=== PATIENT | male | born 2005 | race Caucasian/White ===

== ENCOUNTER 2024-08-03 15:03 | Emergency (ER) | payer MEDICAID ==
[~2024-08-03] VITALS: Ht 195.6 cm; Wt 87.9 kg
[2024-08-03 15:44] LABS: BASOPHILS 0.2 % (0-2); EOSINOPHILS 0.5 % (0-6); HEMATOCRIT 47.5 % (35.0-50.0); HEMOGLOBIN 16.2 g/dL (12.0-18.0); LYMPHOCYTES 17.9 % (24-44); MCH 30.2 (27-36); MCHC 34.1 g/dl (30-36); MCV 88.5 fl (81-99); NEUTROPHILS 72.4 % (39-80); PLATELET COUNT 306 K/uL (140-440); RBC 5.36 M/ul (4.3-5.7); RDW 13.1 (10.5-15.0)
[2024-08-03] MEDS ORDERED: diphenhydrAMINE HCL 50 MG/ML VIAL IM SCH (15:45)
[2024-08-03] MEDS ORDERED: HALOPERIDOL LACTATE 5 MG/ML VIAL IM SCH (15:45)
[2024-08-03] MEDS ORDERED: LORazepam 2 MG/ML VIAL IM ONE (15:45)
[2024-08-03 16:07] LABS: ACETAMINOPHEN 0 ug/mL (10-30); ALBUMIN 3.9 g/dL (3.4-5.0); ALCOHOL, MEDICAL <3 ng/dL (<3); ALKALINE PHOSPHATASE 63 U/L (46-116); ALT (SGPT) 17 U/L (14-59); ANION GAP 11.8 (7-21); AST (SGOT) 13 U/L (15-37); BILIRUBIN, TOTAL 0.5 ng/dL (0.2-1.0); CALCIUM 9.3 mg/dL (8.5-10.1); CARBON DIOXIDE 30 mmol/L (21-32); CHLORIDE 102 mmol/L (98-107); CREATININE, SERUM 1.08 mg/dL (0.70-1.30); GLOMERULAR FILTRATION RATE,EST 101 mL/min (>60); POTASSIUM 3.8 mmol/L (3.5-5.1); PROTEIN, TOTAL 7.8 g/dL (6.4-8.2); SALICYLATE 1.4 mg/dL (2.8-20.0); TSH, 3RD GENERATION 0.948 uIU/mL (0.516-4.130); UREA NITROGEN 8 mg/dL (7-18)
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
[2024-08-03 21:13] LABS: BILIRUBIN, URINE NEGATIVE (negative); BLOOD/HGB, URINE NEGATIVE (Negative); KETONE, URINE NEGATIVE (Negative); LEUK ESTERASE, URINE NEGATIVE (negative); NITRITE, URINE NEGATIVE (negative); PH, URINE 6.5 (5-7)
[2024-08-03 21:28] LABS: AMPHETAMINES, URINE NEGATIVE (NEGATIVE); BARBITURATES, URINE NEGATIVE (NEGATIVE); BENZODIAZEPINE, URINE NEGATIVE (NEGATIVE); BUPRENORPHINE, URINE NEGATIVE (NEGATIVE); CANNABINOID, URINE POSITIVE (NEGATIVE); COCAINE, URINE NEGATIVE (NEGATIVE); ECSTASY, URINE NEGATIVE (NEGATIVE); FENTANYL, URINE NEGATIVE (NEGATIVE); METHADONE, URINE NEGATIVE (NEGATIVE); OPIATES, URINE NEGATIVE (NEGATIVE); OXYCODONE, URINE NEGATIVE (NEGATIVE); PHENCYCLIDINE, URINE NEGATIVE (NEGATIVE)
--- NOTE | 2024-08-04 22:38 | EKG ---
[facility] [address] [place] [address] Signed Normal sinus rhythm Normal ECG No previous ECGs available Confirmed by Bree Campbell MD () on 08/04/2024 10:38:05 PM Electronically Signed By: BREE CAMPBELL MD 08/04/242237 PATIENT NAME: DOMINIC PAEZ Electrocardiogram DATE OF : [birth year] PHYSICIAN: BREE CAMPBELL MD REPORT #: [id number] REPORT IS CONFIDENTIAL AND NOT TO BE RELEASED WITHOUT AUTHORIZATION
[2024-08-05] MEDS ORDERED: MELATONIN5 M2 PO (00:08)
[2024-08-05] MEDS ORDERED: MELATONIN 3 MG TAB PO ONE ×2 (00:15)
[2024-08-05] MEDS ORDERED: CEPHALEXIN500 M1 PO (08:09)
[2024-08-05] MEDS ORDERED: LIDOCAINE/RACEPINEP/TETRACAINE 3 ML SYR TOP ONE ×2 (08:15)
[2024-08-05] MEDS ORDERED: CEPHALEXIN MONOHYDRATE 500 MG CAP PO ONE (08:15)
[2024-08-05 08:32] VITALS: BP 138/93
== END 2024-08-05 08:32 ==
LOC: ED 15:03
PROVIDERS: Emergency Medicine
DX: F29 Unspecified psychosis not due to a substance or known physiological condition (principal); R22.31 Localized swelling, mass and lump, right upper limb
CPT/HCPCS: 36415; 80053; 80307; 81003; 84443; 85025; 93005; 93010; 99285; A9270; G0480